=== PATIENT | female | born 1980 | race Caucasian/White ===

== ENCOUNTER 2017-04-11 12:07 | Emergency (ER) | payer BC ==
[~2017-04-11] VITALS: Ht 157.5 cm; Wt 77.1 kg
[~2017-04-11 12:07] MED LIST: BUDEPRION XL300 MG PO; IBUPROFEN400 MG PO; KEFLEX500 MG PO; LEVOTHYROXINE50 MCG PO; PROZAC10 MG PO
[2017-04-11] MEDS ORDERED: ONDANSETRON ODT8 MG PO (14:07)
[2017-04-11] MEDS ORDERED: IMITREX50 MG PO (14:07)
== END 2017-04-11 14:22 | disposition home or self-care (01) ==
LOC: ED 12:07
DX: R51 Headache (principal); Z79.899 Other long term (current) drug therapy
CPT/HCPCS: 96372; 99283; J3030